=== PATIENT | male | born 1965 | race Caucasian/White ===

== ENCOUNTER → 2020-12-03 | Outpatient (CLI) | payer BC ==
[~2020-12-03] MED LIST: ASPIRIN EC81 MG PO; BACTROBAN OINT22 GM EXT; BUSPIRONE HCL5 MG PO; CO Q-10100 MG PO; ENOXAPARIN100 MG/1 M SC; GLUCOPHAGE500 MG PO; LEVOFLOXACIN500 MG PO; LIPITOR TAB 1010 MG PO; LIPITOR40 MG PO; PREVACID30 MG PO; TOPROL XL25 MG PO
== END ==
LOC: KOH-I 14:58
DX: C73 Malignant neoplasm of thyroid gland (principal); E04.1 Nontoxic single thyroid nodule
CPT/HCPCS: 76536

== ENCOUNTER → 2021-12-20 | Outpatient (CLI) | payer BC | LOC: EXRD 12-14 13:00 | DX: C73 Malignant neoplasm of thyroid gland (principal) | CPT/HCPCS: 76536 ==